=== PATIENT | male | born 2005 | race Asian ===

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

== ENCOUNTER → 2024-04-02 | Outpatient (CLI) | payer OTHER ==
--- NOTE | 2024-04-03 11:07 | XR ---
EXAMINATION TYPE: XR abdomen 2V DATE OF EXAM: 04/02/2024 4:37 PM COMPARISON: None. CLINICAL INDICATION: Male, 18 years old with history of R1010 UPPER ABD PAIN, TECHNIQUE: XR abdomen 2V view(s) obtained.Supine and upright views FINDINGS: There is a normal bowel gas pattern. No free air is evident. No suspicious air-fluid levels or differ ential air-fluid levels are present. Psoas margins are normal. No organomegaly is present. No suspicious calcifications evident. IMPRESSION: 1. [facility] Tamara Mcnally, , 04/03/2024 11:05 AM
== END | disposition home or self-care (01) ==
LOC: RADXRYALE 16:23
PROVIDERS: ATTEND Physician Assistant Medical
DX: R10.10 Upper abdominal pain, unspecified (principal)
CPT/HCPCS: 74019